=== PATIENT | male | born 1940 | race Caucasian/White ===

== ENCOUNTER 2016-07-30 02:48 | Emergency (ER) | payer OTHER ==
[~2016-07-30] VITALS: Ht 182.9 cm; Wt 88.0 kg
[~2016-07-30 02:48] MED LIST: ADVAI100I PO; ALBU8I INH; OSEL75 PO; PLAV75TA PO; PRED50 PO
[2016-07-30 02:55] VITALS: BP 99/67; PULSE 68; RESP 20; TEMP 97.4; O2SAT 94
[2016-07-30 03:09] VITALS: BP 125/73; PULSE 56; RESP 18; TEMP 97.8; O2SAT 95
[2016-07-30] MEDS ORDERED: PLAV75TA29 PO (03:09)
[2016-07-30] MEDS ORDERED: ADVA250A INH (03:09)
[2016-07-30] MEDS ORDERED: SODIUM CHLORIDE 0.9% FLUSH 5 ML FLUSH IVF PRN (03:30)
--- NOTE | 2016-07-30 03:30 | PD ---
HPI Chief Complaint: Abdominal Pain Time Seen by Provider: 03:15 Travel History International Travel<30 days: No Contact w/Intl Traveler<30days: No Traveled to known affect area: No History of Present Illness HPI The patient is a 76-year-old male that for 3 weeks has had episodes of left upper quadrant abdominal pain. He denies any nausea, diarrhea, fever, dysuria, frequency or urgency. Tonight's episode is been lasting for over 1 hour. PFSH Past Medical History Hx Anticoagulant Therapy: Yes (plavix) Asthma: Yes Cancer: Yes (SKIN) Cardiac Catheterization: Yes Cardiovascular Problems: Yes (stent; htn) High Cholesterol: Yes COPD: Yes Coronary Artery Disease: Yes Respiratory: Yes (asthma) Tetanus Vaccination: Unknown Influenza Vaccination: Yes Past Surgical History Abdominal Surgery: Yes ("EMERGENCY BOWEL, WAS TWISTED") Coronary Stent: Yes (X1: 2012) Eye Surgery: Yes (BILATERAL CATARACTS) Social History Alcohol Use: Yes (VERY RARELY) Tobacco Use: No (QUIT AGE 29) Substance Use: No Allergies-Medications (Allergen,Severity, Reaction): Coded Allergies: No Known Allergies (Unverified , 07/30/16) Reported Meds & Prescriptions Reported Meds & Active Scripts Active Reported Advair Diskus Inh (Fluticasone-Salmeterol Inh) 250-50 Mcg/Blist Aer 1 Puff INH BID Rinse mouth after use. Plavix (Clopidogrel Bisulfate) 75 Mg Tab 75 Mg PO DAILY Review of Systems Except as stated in HPI: all other systems reviewed are Neg Physical Exam Narrative GENERAL: The patient is alert, oriented 3 and slight apparent distress with his left upper quadrant abdominal pain. His vital signs are normal. SKIN: Warm and dry. HEAD: Atraumatic. Normocephalic. EYES: Pupils equal and round. No scleral icterus. No injection or drainage. ENT: No nasal bleeding or discharge. Mucous membranes pink and moist. NECK: Trachea midline. No JVD. CARDIOVASCULAR: Regular rate and rhythm. No murmur appreciated. RESPIRATORY: No accessory muscle use. Clear to auscultation. Breath sounds equal bilaterally. GASTROINTESTINAL: Abdomen soft, with tenderness to direct palpation in the left upper quadrant, nondistended. Hepatic and splenic margins not palpable. No guarding or rebound is present. MUSCULOSKELETAL: No obvious deformities. No clubbing. No cyanosis. No edema. NEUROLOGICAL: Awake and alert. No obvious cranial nerve deficits. Motor grossly within normal limits. Normal speech. PSYCHIATRIC: Appropriate mood and affect; insight and judgment normal. Data Data Last Documented VS Vital Signs Date Time Temp Pulse Resp B/P Pulse Ox O2 Delivery O2 Flow Rate FiO2 07/30/16 05:32 63 18 158/82 97 Room Air 07/30/16 03:09 97.8 Orders Complete Blood Count With Diff (07/30/16 03:30) Comprehensive Metabolic Panel (07/30/16 03:30) Lipase (07/30/16 03:30) Urinalysis - C+S If Indicated (07/30/16 03:30) Ct Abd/Pel W Iv Contrast(Rout) (07/30/16 03:30) Iv Access Insert/Monitor (07/30/16 03:30) Ecg Monitoring (07/30/16 03:30) Oximetry (07/30/16 03:30) Sodium Chloride 0.9% Flush (Ns Flush) (07/30/16 03:30) Iohexol 350 Inj (Omnipaque 350 Inj) (07/30/16 05:27) Labs Laboratory Tests Test 07/30/16 07/30/16 04:10 04:28 White Blood Count 7.1 TH/MM3 Red Blood Count 4.96 MIL/MM3 Hemoglobin 14.5 GM/DL Hematocrit 42.0 % Mean Corpuscular Volume 84.8 FL Mean Corpuscular Hemoglobin 29.2 PG Mean Corpuscular Hemoglobin 34.5 % Concent Red Cell Distribution Width 14.0 % Platelet Count 182 TH/MM3 Mean Platelet Volume 9.1 FL Neutrophils (%) (Auto) 69.5 % Lymphocytes (%) (Auto) 13.7 % Monocytes (%) (Auto) 6.8 % Eosinophils (%) (Auto) 9.3 % Basophils (%) (Auto) 0.7 % Neutrophils # (Auto) 4.9 TH/MM3 Lymphocytes # (Auto) 1.0 TH/MM3 Monocytes # (Auto) 0.5 TH/MM3 Eosinophils # (Auto) 0.7 TH/MM3 Basophils # (Auto) 0.0 TH/MM3 CBC Comment DIFF FINAL Differential Comment Sodium Level 143 MEQ/L Potassium Level 3.7 MEQ/L Chloride Level 107 MEQ/L Carbon Dioxide Level 26.3 MEQ/L Anion Gap 10 MEQ/L Blood Urea Nitrogen 14 MG/DL Creatinine 0.76 MG/DL Estimat Glomerular Filtration 100 ML/MIN Rate Random Glucose 106 MG/DL Calcium Level 7.9 MG/DL Total Bilirubin 0.9 MG/DL Aspartate Amino Transf 23 U/L (AST/SGOT) Alanine Aminotransferase 37 U/L (ALT/SGPT) Alkaline Phosphatase 50 U/L Total Protein 6.7 GM/DL Albumin 3.6 GM/DL Lipase 210 U/L Urine Color YELLOW Urine Turbidity CLEAR Urine pH 6.0 Urine Specific [place] 1.017 Urine Protein NEG mg/dL Urine Glucose (UA) NEG mg/dL Urine Ketones NEG mg/dL Urine Occult Blood NEG Urine Nitrite NEG Urine Bilirubin NEG Urine Leukocyte Esterase TRACE Urine RBC 0-3 /hpf Urine WBC 6-8 /hpf Urine Squamous Epithelial 0-5 /hpf Cells Urine Bacteria NONE /hpf Microscopic Urinalysis Comment CULT NOT INDICATED MDM Medical Decision Making Medical Screen Exam Complete: Yes Emergency Medical Condition: Yes Medical Record Reviewed: Yes Interpretation(s) The CBC is normal. The complete metabolic profile shows a calcium of 7.9 but is otherwise normal. The lipase is normal. The urine shows trace leukocyte esterase and 6-8 white cells with no bacteria and culture is not indicated. The CT scan shows diverticulosis without diverticulitis, atherosclerosis and prominent prostate. Bladder diverticula are also noted. Differential Diagnosis Pancreatitis, ulcer pain, colitis, splenic enlargement with pain, splenic tumor , splenic flexure syndrome, abdominal aortic aneurysm Narrative Course It is now 0430 and the patient feels fine. He has no pain or nausea. The patient may have a splenic flexure syndrome, the patient's pain appears to resolve spontaneously every time he gets this pain. He may be able to correlate it with eating. Impression: Abdominal pain etiology undeterminedresolved. Diagnosis Primary Impression: Splenic flexure syndrome Ruled Out: Abdominal aortic aneurysm Additional Instructions: You may wish to drink more liquids or avoid heavy meals. Heavy meals may aggravate a splenic flexure syndrome which we talked about. If this becomes a recurrent problem you should follow-up with a radio/tv technician. Med/Other Pt SpecificInfo: No Change to Meds Disposition: 01 DISCHARGE HOME Condition: Stable Liu Dean MD Jul 30, 2016 03:30
[2016-07-30 04:37] LABS: BLOOD, URINE NEG (NEG); GLUCOSE,URINE NEG (NEG); KETONE, URINE NEG (NEG); NITRITE,URINE NEG (NEG)
[2016-07-30 04:40] LABS: AUTOMATED NEUTROPHIL # 4.9 TH/MM3 (1.8-7.7); BASOPHIL % 0.7 % (0.0-2.0); EOSINOPHIL # 0.7 TH/MM3 (0-0.4); EOSINOPHIL % 9.3 % (0.0-4.0); HEMO FLAGS DIFF FINAL; LYMPH % 13.7 % (9.0-44.0); MEAN CELL VOLUME 84.8 FL (80.0-100.0); MEAN CORPUSCULAR HEMOGLOBIN 29.2 PG (27.0-34.0); MEAN CORPUSCULAR HGB CONC 34.5 % (32.0-36.0); MONO % 6.8 % (0.0-8.0); NEUT % 69.5 % (16.0-70.0); PLATELET COUNT 182 TH/MM3 (150-450); RED BLOOD COUNT 4.96 MIL/MM3 (4.50-5.90); WHITE BLOOD COUNT 7.1 TH/MM3 (4.0-11.0)
[2016-07-30 04:42] LABS: URINE COLOR YELLOW (YELLW/STRAW)
[2016-07-30 04:43] LABS: COMMENT (UR) CULT NOT INDICATED; CULTURE IF INDICATED CULT NOT INDICATED; RBC, URINE 0-3 /hpf (0-3); SQUAMOUS EPITHELIAL CELL URINE 0-5 /hpf (0-5)
[2016-07-30 04:45] LABS: CHLORIDE 107 MEQ/L (98-107); POTASSIUM 3.7 MEQ/L (3.5-5.1); SODIUM (NA) 143 MEQ/L (136-145)
[2016-07-30 04:49] LABS: ANION GAP 10 MEQ/L (5-15); BICARBONATE 26.3 MEQ/L (21.0-32.0); BLOOD UREA NITROGEN 14 MG/DL (7-18)
[2016-07-30 04:51] LABS: ALT (GPT) 37 U/L (12-78)
[2016-07-30 04:52] LABS: AST (GOT) 23 U/L (15-37); GLOMERULAR FILTRATION RATE 100 ML/MIN (>89)
[2016-07-30 04:53] LABS: TOTAL BILIRUBIN ADULT 0.9 MG/DL (0.2-1.0)
[2016-07-30 04:54] LABS: ALKALINE PHOSPHATASE 50 U/L (45-117)
[2016-07-30] MEDS ORDERED: IOHEXOL 350 MG/ML 10 ML VIAL (for RAD DIAG) IV ONE (05:27)
[2016-07-30 05:32] VITALS: BP 158/82; PULSE 63; RESP 18; O2SAT 97
--- NOTE | 2016-07-30 05:38 | RADHPO ---
EXAM DATE/TIME: 07/30/2016 05:10 [facility] COMPARISON: No previous studies available for comparison. INDICATIONS : Left flank pain. IV CONTRAST: 75 cc Omnipaque 350 (iohexol) IV ORAL CONTRAST: No oral contrast ingested. RADIATION DOSE: 17.34 CTDIvol (mGy) MEDICAL HISTORY : Chronic obstructive pulmonary disease. Cardiovascular disease SURGICAL HISTORY : colon surgery ENCOUNTER: Initial ACUITY: 1 day PAIN SCALE: 4/10 LOCATION: Left flank TECHNIQUE: Volumetric scanning of the abdomen and pelvis was performed. Using automated exposure control and ad justment of the mA and/or kV according to patient size, radiation dose was kept as low as reasonably achievable to obtain optimal diagnostic quality images. FINDINGS: Liver, gallbladder, spleen, pancreas, adrenal glands, bilateral kidneys are unremarkable. Scattered a therosclerotic calcifications of the aorta are noted. Fat containing left inguinal hernia. The prosta te is prominent with impression upon the posterior aspect of the urinary bladder. It measures 4.8 x 5 .6 cm in AP and transverse dimension on image 78. There is diverticulosis of the sigmoid colon. There is a bladder diverticulum off the posterior right aspect of the bladder measuring 2.2 cm as well as a diverticulum anteriorly measuring 2.1 cm. Diverticulosis of the descending colon is noted. Small adrienne wel unremarkable. No adenopathy. Degenerative changes of the spine. There is linear scarring at the r ight middle lobe. L5 spondylolysis bilaterally. CONCLUSION: 1. Diverticulosis without diverticulitis. 2. Atherosclerosis. 3. Prominent prostate and bladder diverticula are noted. Will Soriano MD on July 30, 2016 at 5:35 Board Certified Radiologist. This report was verified electronically.
== END 2016-07-30 06:12 | disposition home or self-care (01) ==
LOC: PHED 02:48
DX: K59.8 Other specified functional intestinal disorders (principal)
CPT/HCPCS: 74177; 80053; 81001; 83690; 85025; 99284; Q9967